=== PATIENT | male | born 1980 | race African-American/Black ===

== ENCOUNTER 2020-05-29 20:21 | Emergency (ER) | payer OTHER ==
[~2020-05-29] VITALS: Ht 193 cm; Wt 106.1 kg
--- NOTE | 2020-05-29 21:00 | PHYS DOC ---
Past History Past Medical History: No Pertinent History (KIRAN MARCUM APRN) Past Medical History: Migraines (NOE LORENZO MD) Past Surgical History: Other Additional Past Surgical Histo: ZYGOMATIC REDUCTION (KIRAN MARCUM APRN) Alcohol Use: Occasionally (KIRAN MARCUM APRN) General Adult EDM: Chief Complaint: HEADACHE HPI: HPI: Patient is a 39-year-old male who presents with headache for 5 days. Patient describes headache as pulsating and radiating to the back of his neck. Patient states that he gets headaches a lot when he sleeps on his back. Patient has been taking Tylenol for the pain which eliminates the headache but then he wakes up the next day with another headache. He is also reporting bloodshot eyes for the last 2 days. Patient denies any visual changes. Denies dizziness, weakness .Denies lack of sleep. Denies nausea, vomiting, diarrhea. Patient was Covid tested on May 26 which was negative. Patient has been having symptoms prior to the Covid test on May 26. (KIRAN MARCUM APRN) Review of Systems: Review of Systems: Constitutional: Denies fever or chills Eyes: Denies change in visual acuity, reports bloodshot eyes for the last 2 days HENT: Denies nasal congestion or sore throat Respiratory: Denies cough or shortness of breath Cardiovascular: Denies chest pain or edema GI: Denies abdominal pain, nausea, vomiting, bloody stools or diarrhea : Denies dysuria Musculoskeletal: Denies back pain or joint pain Integument: Denies rash Neurologic: Ports headache for 5 days, denies focal weakness or sensory changes Endocrine: Denies polyuria or polydipsia Lymphatic: Denies swollen glands Psychiatric: Denies depression or anxiety (KIRAN MARCUM APRN) Allergies: Allergies: Allergies Coded Allergies Type Severity Reaction Last Updated Verified carbamazepine Allergy Unknown 05/29/20 Yes (KIRAN MARCUM APRN) Physical Exam: PE: Constitutional: Well developed, well nourished, no acute distress, non-toxic appearance. [] HENT: Normocephalic, atraumatic, bilateral external ears normal, oropharynx moist, no oral exudates, nose normal. [] Eyes: PERRLA, EOMI, conjunctiva normal, no discharge. [] Neck: Normal range of motion, no tenderness, supple, no stridor. [] Cardiovascular:Heart rate regular rhythm, no murmur [] Lungs & Thorax: Bilateral breath sounds clear to auscultation [] Abdomen: Bowel sounds normal, soft, no tenderness, no masses, no pulsatile masses. [] Skin: Warm, dry, no erythema, no rash. [] Back: No tenderness, no CVA tenderness. [] Extremities: No tenderness, no cyanosis, no clubbing, ROM intact, no edema. [] Neurologic: Alert and oriented X 3, normal motor function, normal sensory function, no focal deficits noted. [] Psychologic: Affect normal, judgement normal, mood normal. [] (KIRAN MARCUM APRN) Current Patient Data: Vital Signs: Vital Signs Date Time Temp Pulse Resp B/P (MAP) Pulse Ox O2 Delivery O2 Flow Rate FiO2 05/29/20 20:37 98.3 84 18 141/85 (103) 97 Room Air (KIRAN MARCUM APRN) EKG: EKG: [] (KIRAN MARCUM APRN) Radiology/Procedures: Radiology/Procedures: []CT HEAD/BRAIN WO Date: 05/29/2020 9:32 PM Clinical Indication: Severe headache / Spl. Instructions: / History: Comparison: None. Technique: 5 mm axial tomographic images were obtained of the head without contrast. These were viewed on brain and bone windows. One or more of the following dose reduction techniques were utilized: Automated exposure control (AEC), Adjustment of mA and/or kV according to patient size, Use of iterative reconstruction technique such as ASiR, CT scan done according to ALARA and image gently/image wisely Findings: Increased attenuation of the superior sagittal sinus and transverse sinuses. The brain parenchyma is normal in attenuation. No intra- or extra-axial mass or fluid collection. No acute hemorrhage. The ventricles are normal in size, shape, and morphology. The alcazar-white matter junction is normal. The subarachnoid cisterns are patent. The visualized paranasal sinuses are normal. The visualized portions of the orbits and globes are normal. The mastoid air cells are clear. The rod puller topogram shows no lytic lesion or fracture. Impression: Increased attenuation of the superior sagittal sinus and transverse sinuses. Correlate for recent intravenous contrast administration. If there is concern for dural venous sinus thrombosis, CTV or MRV could be considered Electronically signed by: Silvestre Greene MD (05/29/2020 9:52 PM) [facility] (KIRAN MARCUM APRN) Radiology/Procedures: [place] [address] IMAGING REPORT Signed PATIENT: LUZ MARINA HORNER ACCOUNT: [id number] : 1980 LOCATION: ER AGE: 39 SEX: M EXAM STATUS: PRE ER ORD. PHYSICIAN: KIRAN MARCUM APRN REASON: Severe headache PROCEDURE: CT HEAD WO CONTRAST CT HEAD/BRAIN WO Date: 05/29/2020 9:32 PM Clinical Indication: Severe headache / Spl. Instructions: / History: Comparison: None. Technique: 5 mm axial tomographic images were obtained of the head without contrast. These were viewed on brain and bone windows. One or more of the following dose reduction techniques were utilized: Automated exposure control (AEC), Adjustment of mA and/or kV according to patient size, Use of iterative reconstruction technique such as ASiR, CT scan done according to ALARA and image gently/image wisely Findings: Increased attenuation of the superior sagittal sinus and transverse sinuses. The brain parenchyma is normal in attenuation. No intra- or extra-axial mass or fluid collection. No acute hemorrhage. The ventricles are normal in size, shape, and morphology. The alcazar-white matter junction is normal. The subarachnoid cisterns are patent. The visualized paranasal sinuses are normal. The visualized portions of the orbits and globes are normal. The mastoid air cells are clear. The rod puller topogram shows no lytic lesion or fracture. Impression: Increased attenuation of the superior sagittal sinus and transverse sinuses. Correlate for recent intravenous contrast administration. If there is concern for dural venous sinus thrombosis, CTV or MRV could be considered Electronically signed by: Silvestre Greene MD (05/29/2020 9:52 PM) [facility] DICTATED AND SIGNED BY: SILVESTRE GREENE MD DATE: 05/29/20 [id number] CC: KIRAN MARCUM APRN; PCP,UNKNOWN ~MTH0 0 (NOE LORENZO MD) Heart Score: Risk Factors: Risk Factors: DM, Current or recent (<one month) smoker, HTN, HLP, family history of CAD, obesity. Risk Scores: Score 0 - 3: 2.5% MACE over next 6 weeks - Discharge Home Score 4 - 6: 20.3% MACE over next 6 weeks - Admit for Clinical Observation Score 7 - 10: 72.7% MACE over next 6 weeks - Early Invasive Strategies (KIRAN MARCUM APRN) Course & Med Decision Making: Course & Med Decision Making Pertinent Labs and Imaging studies reviewed. (See chart for details) []Patient is a 39-year-old male who presents with headache for 5 days. Patient describes headache as pulsating and radiating to the back of his neck. Patient states that he gets headaches a lot when he sleeps on his back. Patient has been taking Tylenol for the pain which eliminates the headache but then he wakes up the next day with another headache. He is also reporting bloodshot eyes for the last 2 days. Patient denies any visual changes. Denies dizziness, weakness .Denies lack of sleep. Seizure, vomiting, diarrhea. Patient was Covid tested on May 26 which was negative. . (KIRAN MARCUM APRN) Course & Med Decision Making Pt. follow up with primary. Viral syndrome. (NOE LORENZO MD) Dragon Disclaimer: Dragon Disclaimer: This electronic medical record was generated, in whole or in part, using a voice recognition dictation system. (KIRAN MARCUM APRN) Departure Departure: Impression: Primary Impression: Headache Qualified Codes: G44.219 - Episodic tension-type headache, not intractable Disposition: 01 DC HOME SELF CARE/HOMELESS Condition: GOOD Referrals: PCP,UNKNOWN (PCP) Patient Instructions: General Headache Without Cause, [id number] Additional Instructions: You were seen today for headache. Scripts Hydrocodone/Ibuprofen (HYDROCODONE-IBUPROFEN 7.5-200 ) 1 Each Tablet 1 TAB PO PRN Q6HRS PRN for PAIN, #30 TAB 0 Refills Prov: NOE LORENZO MD 05/30/20 Ondansetron Hcl (ZOFRAN) 4 Mg Tablet 4 MG PO QIDPRN PRN for NAUSEA/VOMITING, #30 TAB Prov: NOE LORENZO MD 05/30/20 Dragon Disclaimer This chart was dictated in whole or in part using Voice Recognition software in a busy, high-work load, and often noisy Emergency Department environment. It may contain unintended and wholly unrecognized errors or omissions. (NOE LORENZO MD) Attending Co-Sign Attending Co-Sign The patient was seen and interviewed as well as examined at the bedside. The chart was reviewed. The case was discussed. Agree with the plan of care. (NOE LORENZO MD) KIRAN MARCUM APRN May 29, 2020 21:00 NOE LORENZO MD May 29, 2020 23:35
[2020-05-29] MEDS ORDERED: KETOROLAC 30 MG/ML VIAL. IVP ONE ×2 (21:15→21:30)
[2020-05-29] MEDS: KETOROLAC 30 MG/ML VIAL. IM ONE ×2 (21:25→21:30)
[2020-05-29] MEDS ORDERED: ONDANSETRON ODT 4 MG TAB.RAPDIS PO ONE (21:30)
--- NOTE | 2020-05-29 21:54 | RAD ---
CT HEAD/BRAIN WO Date: 05/29/2020 9:32 PM Clinical Indication: Severe headache / Spl. Instructions: / History: Comparison: None. Technique: 5 mm axial tomographic images were obtained of the head without contrast. These were view ed on brain and bone windows. One or more of the following dose reduction techniques were utilized: A utomated exposure control (AEC), Adjustment of mA and/or kV according to patient size, Use of iterati ve reconstruction technique such as ASiR, CT scan done according to ALARA and image gently/image reid ly Findings: Increased attenuation of the superior sagittal sinus and transverse sinuses. The brain parenchyma is normal in attenuation. No intra- or extra-axial mass or fluid collection. No acute hemorrhage. The ventricles are normal in size, shape, and morphology. The alcazar-white matter aliza ction is normal. The subarachnoid cisterns are patent. The visualized paranasal sinuses are normal. The visualized portions of the orbits and globes are no rmal. The mastoid air cells are clear. The stick welder topogram shows no lytic lesion or fracture. Impression: Increased attenuation of the superior sagittal sinus and transverse sinuses. Correlate for recent in travenous contrast administration. If there is concern for dural venous sinus thrombosis, CTV or MRV could be considered Electronically signed by: Abiodun Greene MD (05/29/2020 9:52 PM) [facility]
[2020-05-29 22:10] LABS: BASO # 0.1 x10^3/uL (0.0-0.2); BASO % 1 % (0-3); EOS # 0.2 x10^3/uL (0.0-0.7); EOS % 2 % (0-3); HEMATOCRIT 45.6 % (39.0-53.0); HEMOGLOBIN 15.2 g/dL (13.0-17.5); LYMPH # 3.7 x10^3/uL (1.0-4.8); LYMPH % 55 % (24-48); MEAN CORPUSCULAR HEMOGLOBIN 26 pg (25-35); MEAN CORPUSCULAR HGB CONC 33 g/dL (31-37); MEAN CORPUSCULAR VOLUME 78 fL (79-100); MONO # 0.8 x10^3/uL (0.0-1.1); MONO % 13 % (0-9); NEUT % 30 % (31-73); PLATELET COUNT 212 x10^3/uL (140-400); RED BLOOD COUNT 5.84 x10^6/uL (4.30-5.70); RED CELL DISTRIBUTION WIDTH 12.5 % (11.5-14.5); WHITE BLOOD COUNT 6.8 x10^3/uL (4.0-11.0)
[2020-05-29 22:12] LABS: CALCIUM 8.9 mg/dL (8.5-10.1); CREATININE 1.1 mg/dL (0.7-1.3); GFR 74.5; POTASSIUM 3.9 mmol/L (3.5-5.1)
[2020-05-29 22:20] LABS: ALBUMIN 3.6 g/dL (3.4-5.0); ALBUMIN/GLOBULIN RATIO 0.9 (1.0-1.7); C REACTIVE PROTEIN 6.7 mg/L (0-3.3); TOTAL BILIRUBIN 0.6 mg/dL (0.2-1.0); TOTAL PROTEIN 7.8 g/dL (6.4-8.2)
[2020-05-30] MEDS ORDERED: ONDA4TAB7 PO (00:55)
[2020-05-30] MEDS ORDERED: HYDR-1179 PO (00:55)
[2020-05-30 00:59] VITALS: BP 132/78
== END 2020-05-30 01:00 | disposition home or self-care (01) ==
LOC: ER 20:21
DX: G44.219 Episodic tension-type headache, not intractable (principal); B34.9 Viral infection, unspecified; G43.909 Migraine, unspecified, not intractable, without status migrainosus; Z88.8 Allergy status to other drugs, medicaments and biological substances
CPT/HCPCS: 36415; 70450; 80053; 85025; 86140; 96374; 99284; J1885; Q0162